=== PATIENT | male | born 1970 | race Hispanic/Latino ===

== ENCOUNTER 2019-03-07 12:01 | Emergency (ER) | payer OTHER, SELFPAY ==
--- NOTE | 2019-03-07 13:46 | EDPHYS ---
Physician Documentation [facility] Name: Connor Pat Age: 48 yrs Sex: Male : 1970 Arrival Date: 03/07/2019 Time: 12:05 Bed 23 Private MD: ED Physician Kobe Denny HPI: 03/07 15:56 This 48 yrs old Male presents to ER via Ambulatory with complaints of Stressed.pm1 15:56 The patient presents to the emergency department with anxiety, over a , pm1 grandfather and cousin. Onset: The symptoms/episode began/occurred 1 week(s) ago. Past psychiatric history: Prior diagnosis: no previous psychiatric diagnosis known, Psychiatric medications include: none, Primary psychiatric physician: the patient does not have a primary psychiatric physician. Associated signs and symptoms: Pertinent positives; depression, Pertinent negatives: delusions, homicidal ideation, substance abuse, suicide ideation. Severity of symptoms: in the emergency department the symptoms are worse. The patient has not experienced similar symptoms in the past. The patient has not recently seen a physician. Grandfather and cousin his age within a few days of each other recently and he is having a hard time coping with it. He feels like he is about to next. Historical: - Allergies: 12:18 No Known Allergies; ph - Home Meds: 12:18 None [Active]; ph - PMHx: 12:18 None; ph - PSHx: 12:18 Appendectomy; ph - Immunization history:: Adult Immunizations up to date. - Social history:: Smoking status: Patient/guardian denies using tobacco. - Ebola Screening: : No symptoms or risks identified at this time. ROS: 15:56 Constitutional: Negative for fever, chills, and weight loss, Eyes: Negative for injury, pm1 pain, redness, and discharge, ENT: Negative for injury, pain, and discharge, Neck: Negative for injury, pain, and swelling, Cardiovascular: Negative for chest pain, palpitations, and edema, Respiratory: Negative for shortness of breath, cough, wheezing, and pleuritic chest pain, Abdomen/GI: Negative for abdominal pain, nausea, vomiting, diarrhea, and constipation, Back: Negative for injury and pain, : Negative for injury, bleeding, discharge, and swelling, MS/Extremity: Negative for injury and deformity, Skin: Negative for injury, rash, and discoloration, Neuro: Negative for headache, weakness, numbness, tingling, and seizure. 15:56 Psych: Positive for anxiety, depression, Negative for auditory hallucinations, visual hallucinations, homicidal ideation, suicide gesture, suicidal ideation. Exam: 15:56 Constitutional: This is a well developed, well nourished patient who is awake, alert, pm1 and in no acute distress. Head/Face: Normocephalic, atraumatic. Eyes: Pupils equal round and reactive to light, extra-ocular motions intact. Lids and lashes normal. Conjunctiva and sclera are non-icteric and not injected. Cornea within normal limits. Periorbital areas with no swelling, redness, or edema. ENT: Nares patent. No nasal discharge, no septal abnormalities noted. Tympanic membranes are normal and external auditory canals are clear. Oropharynx with no redness, swelling, or masses, exudates, or evidence of obstruction, uvula midline. Mucous membranes moist. Neck: Trachea midline, no thyromegaly or masses palpated, and no cervical lymphadenopathy. Supple, full range of motion without nuchal rigidity, or vertebral point tenderness. No Meningismus. Chest/axilla: Normal chest wall appearance and motion. Nontender with no deformity. No lesions are appreciated. Cardiovascular: Regular rate and rhythm with a normal S1 and S2. No gallops, murmurs, or rubs. Normal PMI, no JVD. No pulse deficits. Respiratory: Lungs have equal breath sounds bilaterally, clear to auscultation and percussion. No rales, rhonchi or wheezes noted. No increased work of breathing, no retractions or nasal flaring. Abdomen/GI: Soft, non-tender, with normal bowel sounds. No distension or tympany. No guarding or rebound. No evidence of tenderness throughout. Back: No spinal tenderness. No costovertebral tenderness. Full range of motion. Skin: Warm, dry with normal turgor. Normal color with no rashes, no lesions, and no evidence of cellulitis. MS/ Extremity: Pulses equal, no cyanosis. Neurovascular intact. Full, normal range of motion. 15:56 Neuro: Orientation: is normal, Motor: is normal, moves all fours, Gait: is steady, at a normal pace, without difficulty. 15:56 Psych: Behavior/mood is cooperative, Affect is calm, Oriented to person, Patient has no thoughts/intents to harm self or others. Judgement / Insight is normal. Vital Signs: 12:18 BP 153 / 104; Pulse 77; Resp 79; Temp 97.8; Pulse Ox 96% on R/A; Weight 79.38 kg; ph Height 5 ft. 5 in. (165.10 cm); 12:27 Resp 16; la1 12:18 Body Mass Index 29.12 (79.38 kg, 165.10 cm) ph MDM: 12:39 Patient medically screened. pm1 13:45 Data reviewed: vital signs. Data interpreted: Pulse oximetry: on room air is 96 %. pm1 Interpretation: normal. Counseling: I had a detailed discussion with the patient and/or guardian regarding: the historical points, exam findings, and any diagnostic results supporting the discharge/admit diagnosis, the need for outpatient follow up, to return to the emergency department if symptoms worsen or persist or if there are any questions or concerns that arise at home. Administered Medications: No medications were administered Disposition: 03/07/19 13:45 Discharged to Home. Impression: Acute stress reaction. - Condition is Stable. - Discharge Instructions: Stress and Stress Management. - Prescriptions for Valium 2 mg Oral Tablet - take 1 tablet by ORAL route every 8 hours As needed; 10 tablet. - Medication Reconciliation Form, Thank You Letter, Antibiotic Education, Prescription Opioid Use form. - Follow up: Emergency Department; When: As needed; Reason: Worsening of condition. Follow up: Private Physician; When: 2 - 3 days; Reason: Recheck today's complaints, Continuance of care, Re-evaluation by your physician. - Problem is new. - Symptoms have improved. Signatures: Krzysztof Martin RN RN la1 Laurie Gagnon RN RN ph Lester Daly, ROD DIRECTOR OF APPLICATION DEVELOPMENT pm1 Corrections: (The following items were deleted from the chart) 13:54 13:45 03/07/2019 13:45 Discharged to Home. Impression: Acute stress reaction. Condition la1 is Stable. Forms are Medication Reconciliation Form, Thank You Letter, Antibiotic Education, Prescription Opioid Use. Follow up: Emergency Department; When: As needed; Reason: Worsening of condition. Follow up: Private Physician; When: 2 - 3 days; Reason: Recheck today's complaints, Continuance of care, Re-evaluation by your physician. Problem is new. Symptoms have improved. pm1
--- NOTE | 2019-03-07 13:46 | ER ---
Nurse's Notes [facility] Name: Connor Pat Age: 48 yrs Sex: Male : 1970 Arrival Date: 03/07/2019 Time: 12:05 Bed 23 Private MD: Diagnosis: Acute stress reaction Presentation: 03/07 12:15 Presenting complaint: Patient states: State, " I've really been stressed out lately, I ph had 2 family members recently and I'm from out of town and don't have any family near by and I've just been really anxious and overwhelmed." Pt reports palpitations, dizziness and feelings of nervousness/anxious, denies chest pain or SOB. Transition of care: patient was not received from another setting of care. Onset of symptoms was March 07, 2019. Risk Assessment: Do you want to hurt yourself or someone else? Patient reports no desire to harm self or others. Initial Sepsis Screen: Does the patient meet any 2 criteria? No. Patient's initial sepsis screen is negative. Does the patient have a suspected source of infection? No. Patient's initial sepsis screen is negative. Care prior to arrival: None. 12:15 Method Of Arrival: Ambulatory 12:15 Acuity: DEANNA 3 ph Historical: - Allergies: 12:18 No Known Allergies; ph - Home Meds: 12:18 None [Active]; ph - PMHx: 12:18 None; ph - PSHx: 12:18 Appendectomy; ph - Immunization history:: Adult Immunizations up to date. - Social history:: Smoking status: Patient/guardian denies using tobacco. - Ebola Screening: : No symptoms or risks identified at this time. Screenin:28 Abuse screen: Denies threats or abuse. Nutritional screening: No deficits noted. la1 Tuberculosis screening: No symptoms or risk factors identified. Fall Risk None identified. Assessment: 12:27 General: Appears in no apparent distress. Behavior is calm, cooperative. Pain: Denies la1 pain. Neuro: Level of Consciousness is awake, alert, obeys commands, Oriented to person, place, time, situation. Cardiovascular: Denies chest pain, diaphoresis, fatigue, lightheadedness, nausea, palpitations, shortness of breath, syncope, vomiting, Capillary refill < 3 seconds Patient's skin is warm and dry. Respiratory: Breath sounds are clear bilaterally. Respiratory: Airway is patent Respiratory effort is even, unlabored, Respiratory pattern is regular, symmetrical. GI: No signs and/or symptoms were reported involving the gastrointestinal system. : No signs and/or symptoms were reported regarding the genitourinary system. Vital Signs: 12:18 BP 153 / 104; Pulse 77; Resp 79; Temp 97.8; Pulse Ox 96% on R/A; Weight 79.38 kg; ph Height 5 ft. 5 in. (165.10 cm); 12:27 Resp 16; la1 12:18 Body Mass Index 29.12 (79.38 kg, 165.10 cm) ph ED Course: 12:05 Patient arrived in ED. tw3 12:18 Triage completed. ph 12:27 Krzysztof Martin RN is Primary Nurse. la1 12:28 Bed in low position. la1 12:30 Lester Daly NP is PHCP. pm1 12:31 Kobe Denny MD is Attending Physician. pm1 13:53 No provider procedures requiring assistance completed. Patient did not have IV access la1 during this emergency room visit. 13:54 Arm band placed on right wrist. la1 Administered Medications: No medications were administered Outcome: 13:45 Discharge ordered by . pm1 13:54 Discharged to home ambulatory. la1 13:54 Condition: stable 13:54 Discharge instructions given to patient, Instructed on discharge instructions, follow up and referral plans. medication usage, Demonstrated understanding of instructions, follow-up care, medications, Prescriptions given X 1. 13:54 Patient left the ED. la1 Signatures: Krzysztof Martin RN RN la1 Laurie Gagnon RN RN Lester Daly NP STENOCAPTIONER pm1 Loren Cisneros tw3
== END 2019-03-07 13:54 | disposition home or self-care (01) ==
LOC: ER 12:01
DX: F43.0 Acute stress reaction (principal)
CPT/HCPCS: 99282